=== PATIENT | male | born 1965 | race Caucasian/White ===

== ENCOUNTER → 2016-05-02 | Outpatient (REF) | LOC: WSOH 14:02 | DX: Z02.89 Encounter for other administrative examinations (principal) ==

== ENCOUNTER 2016-05-11 08:03 | Outpatient (RCR) | payer OTHER | END 2016-07-31 | LOC: WSOH | DX: M25.511 Pain in right shoulder (principal); W01.198A Fall on same level from slipping, tripping and stumbling with subsequent striking against other object, initial encounter; Y99.0 Civilian activity done for income or pay | CPT/HCPCS: J1030 ==

== ENCOUNTER 2019-10-04 08:59 | Outpatient (RCR) | payer OTHER | END 2020-01-02 | disposition home or self-care (01) | LOC: WSOH | DX: M17.11 Unilateral primary osteoarthritis, right knee (principal); S80.01XA Contusion of right knee, initial encounter; E11.9 Type 2 diabetes mellitus without complications; I10 Essential (primary) hypertension; Y99.0 Civilian activity done for income or pay ==

== ENCOUNTER 2019-11-07 13:15 | Outpatient (RCR) | payer OTHER | END 2020-01-10 08:47 | disposition home or self-care (01) | LOC: WSOH 13:15 | DX: S06.0X0A Concussion without loss of consciousness, initial encounter (principal); M50.30 Other cervical disc degeneration, unspecified cervical region; I10 Essential (primary) hypertension; E11.9 Type 2 diabetes mellitus without complications; F17.200 Nicotine dependence, unspecified, uncomplicated; Y99.0 Civilian activity done for income or pay; Z98.1 Arthrodesis status ==